=== PATIENT | female | born 2000 | race Two or more races ===

== ENCOUNTER 2023-06-15 19:50 | Emergency (ER) | payer OTHER ==
[~2023-06-15] VITALS: Ht 167.6 cm; Wt 59.0 kg
[2023-06-15] MEDS ORDERED: LANTUS SOL100 UNIT/1 SQ (20:13)
[2023-06-15] MEDS ORDERED: HUMALOG100 UNIT/2 SQ (20:13)
[2023-06-15 23:32] LABS: URINE APPEARANCE Clear; URINE BILIRRUBIN Negative (NEGATIVE); URINE BLOOD Large; URINE COLOR Yellow; URINE LEUKOCYTE Negative; URINE NITRATE Negative; URINE PROTEIN Negative (NEGATIVE); URINE UROBILINOGEN 0.2 E.U./dl
[2023-06-15 23:32] LABS: HEMATOCRIT 39.4 % (36.0-45.00); MEAN CELL VOLUME 88.3 fL (80.00-100.00); MEAN CORPUSCULAR HEMOGLOBIN 29.1 pg (27.00-32.0); PLATELET COUNT 305 K/uL (150-450); RED BLOOD COUNT 4.46 M/uL (4.00-6.00); RED CELL DISTRIBUTION WIDTH 14.3 % (11.5-14.5)
[2023-06-15 23:35] LABS: URINE BACTERIA 1086.8 uL (0.0-1933); URINE EPITHELIAL CELLS 28.5 uL (0.0-38.8); URINE RBC 349.5 uL (0.0-20.8); URINE WBC 33.6 uL (0.0-23.2)
[2023-06-15 23:50] LABS: ABG PH 7.413 (7.35-7.45); ABG pCO2 38.4 mmHg (35-45)
[2023-06-15 23:51] LABS: ABG PO2 96.5 mmHg (80-100); BASE EXCESS -0.4 mmol/l; BICARBONATE 23.9 mmol/l (23-25); SaO2 97.5 %; Tco2 25.1 mmol/l
[2023-06-15 23:52] LABS: allen test SATISFACTORY; o2 21 %; puncture site RADIAL LEFT
[2023-06-15 23:53] LABS: URINE GLUCOSE >=1000 MG/DL (NEGATIVE)
[2023-06-16 00:06] LABS: ALBUMIN 3.9 gm/dL (3.4-5.0); BILIRUBIN TOTAL 0.38 mg/dL (0.3-1.2); CALCIUM 9.8 mg/dL (8.5-10.1); CREATININE SERUM 0.84 mg/dL (0.55-1.02); GFR 84.02; GLOBULINA 4.2 G/DL (2.4-3.5); POTASSIUM 4.41 mEq/L (3.5-5.1); TOTAL PROTEIN 8.1 gm/dL (6.4-8.2)
== END 2023-06-16 03:21 | disposition home or self-care (01) ==
LOC: ER 19:50
PROVIDERS: General Practice
DX: E10.65 Type 1 diabetes mellitus with hyperglycemia (principal); R53.1 Weakness